=== PATIENT | male | born 1955 | race Caucasian/White ===

== ENCOUNTER → 2019-04-24 | Outpatient (CLI) | payer SELFPAY ==
[2019-04-24 09:52] LABS: CARBON DIOXIDE 27 MMOL/L (21-32); CHLORIDE 99 MMOL/L (98-107); POTASSIUM 4.5 MMOL/L (3.6-5.0); SODIUM 137 MMOL/L (135-145)
[2019-04-24 09:53] LABS: ALANINE AMINOTRANSFERASE 26 U/L (0-55); ALBUMIN 4.7 GM/DL (3.2-4.5); ALKALINE PHOSPHATASE 61 U/L (40-136); BILIRUBIN,TOTAL 1.6 MG/DL (0.1-1.0); BUN/CREATININE RATIO 14; CALCIUM 9.4 MG/DL (8.5-10.1); CREATININE SERUM 1.33 MG/DL (0.60-1.30); GFR ESTIMATED 54; GLUCOSE 101 MG/DL (70-105); TOTAL PROTEIN 7.5 GM/DL (6.4-8.2)
== END ==
LOC: LAB FS 08:53
PROVIDERS: ATTEND Family Medicine
DX: I10 Essential (primary) hypertension (principal)
CPT/HCPCS: 36415; 80053

== ENCOUNTER → 2019-04-24 | Outpatient (CLI) | payer SELFPAY ==
[~2019-04-24] MED LIST: CATHETER FLUSH 10 ML SYR IV PRN; HOLD METFORMIN - RECEIVED CONTRAST 20 ML VIAL IV SCH; IOHEXOL 350 MG/ML 100 ML (OMNIPAQUE 350) VIAL IV ONE; NS 100 ML (IVPB) BAG IV ONE
--- NOTE | 2019-04-24 11:41 | Diagnostic Imaging Report ---
PROCEDURE: CT abdomen and pelvis with contrast. TECHNIQUE: Multiple contiguous axial images were obtained through the abdomen and pelvis after administration of intravenous contrast. Auto Exposure Controls were utilized during the CT exam to meet ALARA standards for radiation dose reduction. INDICATION: Lower abdominal pain. COMPARISON: No prior studies are available for comparison. FINDINGS: The lung bases are clear. No discrete liver mass is identified. There are multiple stones within the gallbladder. No biliary ductal dilatation is seen. The pancreas and spleen are unremarkable. No adrenal mass is detected. Kidneys are unremarkable apart from a simple appearing cyst in the upper pole of the right kidney measuring 19 mm. There is no hydronephrosis. The aorta is non-aneurysmal. No central, retroperitoneal or mesenteric lymphadenopathy is detected. The small and large bowel loops are normal caliber. No obstruction is detected. There is diverticulosis of the sigmoid colon but no evidence of acute diverticulitis. The appendix appears unremarkable. No free fluid or loculated fluid collection is identified. The unopacified urinary bladder is unremarkable. Prostate is unremarkable. No definite pelvic lymphadenopathy is seen. IMPRESSION: 1. Cholelithiasis. 2. Uncomplicated diverticulosis. 3. No acute abnormality is identified. Dictated by: Dictated on workstation # [id number]
== END ==
LOC: RAD FS 08:47
PROVIDERS: ATTEND Family Medicine
DX: K57.30 Diverticulosis of large intestine without perforation or abscess without bleeding (principal); K80.20 Calculus of gallbladder without cholecystitis without obstruction; I10 Essential (primary) hypertension
CPT/HCPCS: 74177

== ENCOUNTER 2019-07-16 08:36 | Emergency (ER) | payer SELFPAY ==
[~2019-07-16] VITALS: Ht 172.7 cm; Wt 72.7 kg
[2019-07-16] MEDS ORDERED: ONDANSETRON 4 MG/2 ML (SDV) Z0FRAN IVP ONE (09:00)
[2019-07-16] MEDS ORDERED: KETOROLAC 30 MG/ML VIAL IVP ONE (09:00)
[2019-07-16] MEDS ORDERED: NS IV 1000 ML 1,000 ML IV SCH ×2 (09:00→09:45)
--- NOTE | 2019-07-16 09:05 | ED Abdominal Pain ---
General Chief Complaint: Abdominal/GI Problems Stated Complaint: LWR BACK PAIN History of Present Illness Date Seen by Provider: Jul 16, 2019 Time Seen by Provider: 08:40 Initial Comments Patient is here with left flank pain left lower quadrant pain really started on Saturday has not had a bowel movement in several days but also noting quite a bit of colicky pain that extends down down to the suprapubic region. No history of this happening before he was seen in the doctor's office that of a prostate infection and placed on a twice a day antibiotic, unsure what it is but has not helped at all also has a history of hypertension and isn't on lisinopril for that. No previous history of stones Timing/Duration: 5-6 Days Severity/Quality: Moderate, Cramping, Sharp Location: LLQ, Flank, Suprapubic Radiation: No Radiation Activities at Onset: None Modifying Factors: Improves With Eating, Improves With Movement Associated Symptoms: No Chest Pain; Diaphoresis; No Headache, No Weakness Allergies and Home Medications Allergies Coded Allergies: No Known Drug Allergies (Unverified , 04/24/19) Patient Home Medication List Home Medication List Reviewed: Yes Review of Systems Review of Systems Constitutional: No chills, No fever, No malaise, No weakness EENTM: No Blurred Vision, No Double Vision, No Ear Pain, No Throat Pain Respiratory: Denies Cough, Denies Shortness of Air Cardiovascular: Denies Chest Pain, Denies Palpitations Gastrointestinal: Abdominal Pain, Constipated, Nausea; Denies Vomiting Genitourinary: Denies Frequency, Denies Flank Pain, Denies Incontinence, Denies Pain Musculoskeletal: back pain; No joint swelling, No muscle pain Skin: No change in color, No lesions Psychiatric/Neurological: Denies Headache, Denies Numbness, Denies Paresthesia Past Gycqluy-Fugmuf-Qsplle Hx Past Med/Social Hx: Reviewed Nursing Past Med/Soc Hx Patient Social History Recent Foreign Travel: No Physical Exam Vital Signs Vital Signs - First Documented 07/16/19 08:59 Temp 36.0 Pulse 99 Resp 20 B/P (MAP) 122/67 (85) Pulse Ox 98 O2 Delivery Room Air Capillary Refill : Height/Weight/BMI Height: '" Weight: lbs. oz. kg; BMI Method: General Appearance: WD/WN, moderate distress HEENT: PERRL/EOMI, TMs normal, pharynx normal Neck: full range of motion, normal inspection Respiratory: normal breath sounds, no respiratory distress Cardiovascular: regular rate, rhythm, no murmur Gastrointestinal: normal bowel sounds; No guarding, No rebound; tenderness Extremities: normal range of motion, normal inspection Back: CVA tenderness (L) Neurologic/Psychiatric: alert, oriented x 3 Skin: normal color, warm/dry Progress/Results/Core Measures Results/Orders Lab Results Laboratory Tests Test 07/16/19 08:50 07/16/19 10:04 Range/Units White Blood Count 19.2 H 4.3-11.0 10^3/uL Red Blood Count 5.99 H 4.35-5.85 10^6/uL Hemoglobin 18.0 H 13.3-17.7 G/DL Hematocrit 53 40-54 % Mean Corpuscular Volume 89 80-99 FL Mean Corpuscular Hemoglobin 30 25-34 PG Mean Corpuscular Hemoglobin Concent 34 32-36 G/DL Red Cell Distribution Width 12.6 10.0-14.5 % Platelet Count 291 130-400 10^3/uL Mean Platelet Volume 9.2 7.4-10.4 FL Neutrophils (%) (Auto) 68 42-75 % Lymphocytes (%) (Auto) 20 12-44 % Monocytes (%) (Auto) 10 0-12 % Eosinophils (%) (Auto) 1 0-10 % Basophils (%) (Auto) 1 0-10 % Neutrophils # (Auto) 13.1 H 1.8-7.8 X 10^3 Lymphocytes # (Auto) 3.9 1.0-4.0 X 10^3 Monocytes # (Auto) 1.9 H 0.0-1.0 X 10^3 Eosinophils # (Auto) 0.1 0.0-0.3 10^3/uL Basophils # (Auto) 0.1 0.0-0.1 10^3/uL Neutrophils % (Manual) 72 % Lymphocytes % (Manual) 23 % Monocytes % (Manual) 3 % Eosinophils % (Manual) 1 % Basophils % (Manual) 0 % Band Neutrophils 1 % Sodium Level 131 L 135-145 MMOL/L Potassium Level 4.1 3.6-5.0 MMOL/L Chloride Level 92 L 98-107 MMOL/L Carbon Dioxide Level 24 21-32 MMOL/L Anion Gap 15 H 5-14 MMOL/L Blood Urea Nitrogen 15 7-18 MG/DL Creatinine 1.65 H 0.60-1.30 MG/DL Estimat Glomerular Filtration Rate 42 BUN/Creatinine Ratio 9 Glucose Level 118 H 70-105 MG/DL Calcium Level 9.7 8.5-10.1 MG/DL Corrected Calcium 9.3 8.5-10.1 MG/DL Total Bilirubin 1.7 H 0.1-1.0 MG/DL Aspartate Amino Transf (AST/SGOT) 22 5-34 U/L Alanine Aminotransferase (ALT/SGPT) 20 0-55 U/L Alkaline Phosphatase 62 40-136 U/L Total Protein 7.9 6.4-8.2 GM/DL Albumin 4.5 3.2-4.5 GM/DL Lipase 75 8-78 U/L Urine Color YELLOW Urine Clarity CLEAR Urine pH 7.0 5-9 Urine Specific Fiatt 1.020 1.016-1.022 Urine Protein NEGATIVE NEGATIVE Urine Glucose (UA) NEGATIVE NEGATIVE Urine Ketones TRACE H NEGATIVE Urine Nitrite NEGATIVE NEGATIVE Urine Bilirubin 1+ H NEGATIVE Urine Urobilinogen 1.0 < = 1.0 MG/DL Urine Leukocyte Esterase NEGATIVE NEGATIVE Urine RBC (Auto) TRACE H NEGATIVE Urine RBC RARE /HPF Urine WBC 0-2 /HPF Urine Squamous Epithelial Cells NONE /HPF Urine Crystals NONE /LPF Urine Bacteria FEW H /HPF Urine Casts NONE /LPF Urine Mucus SMALL H /LPF Urine Culture Indicated NO My Orders Orders - ALEXA JIMENEZ JR, MD Cbc And Manual Diff (07/16/19 08:51) Comprehensive Metabolic Panel (07/16/19 08:51) Ua Culture If Indicated (07/16/19 08:51) Lipase (07/16/19 08:51) Ns Iv 1000 Ml (Sodium Chloride 0.9%) (07/16/19 09:00) Ondansetron Injection (Zofran Injectio (07/16/19 09:00) Ketorolac Injection (Toradol Injection) (07/16/19 09:00) Ct Abdomen/Pelvis Wo (07/16/19 08:51) Ns Iv 1000 Ml (Sodium Chloride 0.9%) (07/16/19 09:45) Medications Given in ED Current Medications Medications Dose Ordered Sig/Ciro Route Start Time Stop Time Status Last Admin Dose Admin Ketorolac Tromethamine 30 mg ONCE ONCE IVP 07/16/19 09:00 07/16/19 09:01 DC 07/16/19 09:01 30 MG Ondansetron HCl 4 mg ONCE ONCE IVP 07/16/19 09:00 07/16/19 09:01 DC 07/16/19 09:01 4 MG Vital Signs/I&O 07/16/19 08:59 Temp 36.0 Pulse 99 Resp 20 B/P (MAP) 122/67 (85) Pulse Ox 98 O2 Delivery Room Air Progress Progress Note : Time: 10:45 Progress Note Patient's still a little residual pain left flank left posterior back left suprapubic area markedly improved CAT scan didn't show any evidence of stones did show gallstones and diverticulosis but no diverticulitis urine did show some blood he did have a 19,000 white count at this time of switch him over to Cipro will continue push fluids is this his prostate as was originally suspected orifices of kidney stone the past. Will follow with his primary care doctor's the week Departure Impression Primary Impression: Abdominal pain Qualified Codes: R10.32 - Left lower quadrant pain Disposition: 01 HOME, SELF-CARE Condition: Stable Departure-Patient Inst. Referrals: SELFMARY KAY MD (PCP/Family) Primary Care Physician Patient Instructions: Acute Abdomen (Belly Pain), Adult (DC), Renal Colic (DC) Scripts Ciprofloxacin HCl (Ciprofloxacin HCl) 500 Mg Tablet 500 MG PO BID for 10 Days, #20 TAB Prov: ALEXA JIMENEZ JR, MD 07/16/19 ALEXA JIMENEZ JR, MD Jul 16, 2019 09:05
[2019-07-16 09:06] LABS: HEMATOCRIT 53 % (40-54); MEAN CORPUSCULAR HEMOGLOBIN 30 PG (25-34); MEAN CORPUSCULAR HGB CONC 34 G/DL (32-36); MEAN CORPUSCULAR VOLUME 89 FL (80-99); MEAN PLATELET VOLUME 9.2 FL (7.4-10.4); PLATELET COUNT 291 10^3/uL (130-400); RED CELL DISTRIBUTION WIDTH 12.6 % (10.0-14.5); WHITE BLOOD COUNT 19.2 10^3/uL (4.3-11.0)
[2019-07-16 09:07] LABS: BASOPHILS # (AUTO) 0.1 10^3/uL (0.0-0.1); BASOPHILS % (AUTO) 1 % (0-10); EOSINOPHILS # (AUTO) 0.1 10^3/uL (0.0-0.3); EOSINOPHILS % (AUTO) 1 % (0-10); LYMPHOCYTES # (AUTO) 3.9 X 10^3 (1.0-4.0); LYMPHOCYTES % (AUTO) 20 % (12-44); MONOCYTES # (AUTO) 1.9 X 10^3 (0.0-1.0); MONOCYTES % (AUTO) 10 % (0-12); NEUTROPHILS # (AUTO) 13.1 X 10^3 (1.8-7.8); NEUTROPHILS % (AUTO) 68 % (42-75)
[2019-07-16 09:32] LABS: BAND NEUTROPHILS 1 %; BASOPHILS % (MANUAL) 0 %; EOSINOPHILS % (MANUAL) 1 %; LYMPHOCYTES % (MANUAL) 23 %; MONOCYTES % (MANUAL) 3 %; NEUTROPHILS % (MANUAL) 72 %
[2019-07-16 09:34] LABS: ALBUMIN 4.5 GM/DL (3.2-4.5); BILIRUBIN,TOTAL 1.7 MG/DL (0.1-1.0); CALCIUM 9.7 MG/DL (8.5-10.1); CREATININE SERUM 1.65 MG/DL (0.60-1.30); POTASSIUM 4.1 MMOL/L (3.6-5.0); TOTAL PROTEIN 7.9 GM/DL (6.4-8.2)
--- NOTE | 2019-07-16 09:46 | Diagnostic Imaging Report ---
PROCEDURE: CT abdomen and pelvis without contrast. TECHNIQUE: Multiple contiguous axial images were obtained through the abdomen and pelvis without the use of intravenous contrast. Auto Exposure Controls were utilized during the CT exam to meet ALARA standards for radiation dose reduction. All CT scans use one or more of the following dose optimizing techniques: automated exposure control, MA and/or KvP adjustment based on patient size and exam type or iterative reconstruction. INDICATION: Left lower flank pain and lower abdominal and pelvic pain. COMPARISON: Correlation is made with prior CT from 04/24/2019. FINDINGS: Linear atelectasis or scarring in both bases is noted. The liver remains unremarkable. Multiple stones within the gallbladder are again noted. There is no biliary ductal dilatation. The pancreas and spleen are unremarkable. No adrenal mass is seen. Kidneys are without calculi. No definite hydronephrosis is identified. No ureteral or bladder calculi are detected. Aorta is calcified but nonaneurysmal. Bowel loops remain normal caliber. There is diverticulosis involving the descending and sigmoid colon. No definite evidence of acute diverticulitis is identified. Prostate is mildly enlarged. There is no free fluid or fluid collection identified. Bony structures are nonacute. IMPRESSION: 1. Bibasilar subsegmental atelectasis. 2. Cholelithiasis. 3. No urinary tract calculi or obstruction is detected. 4. Uncomplicated diverticulosis. 5. Mild prostatomegaly. Dictated by: Dictated on workstation # [id number]
[2019-07-16 10:35] LABS: BILIRUBIN,URINE 1+ (NEGATIVE); CLARITY,URINE CLEAR; COLOR,URINE YELLOW; GLUCOSE, URINE (UA) NEGATIVE (NEGATIVE); KETONES,URINE TRACE (NEGATIVE); NITRITE,URINE NEGATIVE (NEGATIVE); PROTEIN,URINE NEGATIVE (NEGATIVE)
[2019-07-16 10:36] LABS: BACTERIA,URINE FEW /HPF; LEUKOCYTE ESTERASE ,URINE NEGATIVE (NEGATIVE); RBC,URINE RARE /HPF; WBC,URINE 0-2 /HPF
[2019-07-16] MEDS ORDERED: CIPR500T4 PO (10:49)
[2019-07-16 11:14] VITALS: BP 142/77
== END 2019-07-16 11:14 | disposition home or self-care (01) ==
LOC: EDUNIT# 08:36 → ER FS 08:37
DX: R10.32 Left lower quadrant pain (principal); I10 Essential (primary) hypertension
CPT/HCPCS: 36415; 74176; 80053; 81000; 83690; 85007; 85027; 96374; 96375

== ENCOUNTER → 2020-06-13 | Outpatient (CLI) | payer OTHER ==
[~2020-06-13] MED LIST changes: -CATHETER FLUSH 10 ML SYR IV PRN; +CIPR500T4 PO; -HOLD METFORMIN - RECEIVED CONTRAST 20 ML VIAL IV SCH; -IOHEXOL 350 MG/ML 100 ML (OMNIPAQUE 350) VIAL IV ONE; -NS 100 ML (IVPB) BAG IV ONE
--- NOTE | 2020-06-13 13:58 | Diagnostic Imaging Report ---
EXAMINATION: Right shoulder at 01:14 p.m. INDICATION: Shoulder pain. Three views were obtained. COMPARISON: There are no prior studies available for comparison. FINDINGS: There is no fracture, dislocation or acute bony abnormality evident. 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 The soft tissues are unremarkable. IMPRESSION: 1. There is no evidence for an acute bony abnormality. 2. If there is clinical concern regarding an injury to the rotator cuff or labrum, then MRI would be recommended for further evaluation. Dictated by: Dictated on workstation # [id number]
== END ==
LOC: RAD FS 13:09
PROVIDERS: ATTEND Nurse Practitioner
DX: M25.511 Pain in right shoulder (principal)
CPT/HCPCS: 73030

== ENCOUNTER → 2021-09-26 | Outpatient (CLI) | payer SELFPAY ==
[~2021-09-26] MED LIST changes: -CIPR500T4 PO; +CIPR500T5 PO
--- NOTE | 2021-09-26 11:15 | Diagnostic Imaging Report ---
INDICATION: Hyperlipidemia. TECHNIQUE: The CT cardiac calcium scoring study was performed with no IV contrast and images of the heart. Calcium scoring was then calculated. Dose reduction protocol was used. FINDINGS: Raw data images demonstrate no mediastinal or hilar adenopathy. The visualized portions of the lung rea show a small incidental pleural-based nodule in the left lower lobe adjacent to the fissure measuring about 6 mm. The entirety of the lung rae is not imaged. CT coronary calcium study demonstrates small areas of calcification in the left main coronary artery and LAD with a total score of 31.8 seen, compatible with overall mild plaque burden. No significant calcifications are visualized in the circumflex coronary artery or right coronary artery. IMPRESSION: Small areas of calcification in the left main coronary artery and LAD with a coronary calcium score of 31.8, compatible with a mild overall plaque burden. Incidental note is made of a 6 mm nodular density in the left lower lobe adjacent to the fissure. Consider followup with full chest CT. Dictated by: Dictated on workstation # [id number]
== END ==
LOC: RAD FS 10:35
PROVIDERS: ATTEND Family Medicine
DX: I25.10 Atherosclerotic heart disease of native coronary artery without angina pectoris (principal); E78.5 Hyperlipidemia, unspecified; R91.8 Other nonspecific abnormal finding of lung field
CPT/HCPCS: 75571

== ENCOUNTER 2021-11-14 09:34 | Emergency (ER) | payer MEDICARE, OTHER ==
[~2021-11-14] VITALS: Ht 172 cm; Wt 71.6 kg
[2021-11-14 10:10] LABS: BILIRUBIN,URINE NEGATIVE (NEGATIVE); CLARITY,URINE CLEAR; COLOR,URINE YELLOW; GLUCOSE, URINE (UA) NEGATIVE (NEGATIVE); KETONES,URINE NEGATIVE (NEGATIVE); LEUKOCYTE ESTERASE ,URINE NEGATIVE (NEGATIVE); NITRITE,URINE NEGATIVE (NEGATIVE); PROTEIN,URINE NEGATIVE (NEGATIVE)
[2021-11-14 10:29] LABS: BASOPHILS % (AUTO) 0 % (0-10); EOSINOPHILS # (AUTO) 0.1 10^3/uL (0.0-0.3); EOSINOPHILS % (AUTO) 1 % (0-10); HEMATOCRIT 48 % (40-54); HEMOGLOBIN 16.8 g/dL (13.3-17.7); LYMPHOCYTES # (AUTO) 2.5 10^3/uL (1.0-4.0); LYMPHOCYTES % (AUTO) 24 % (12-44); MEAN CORPUSCULAR HEMOGLOBIN 31 pg (25-34); MEAN CORPUSCULAR HGB CONC 35 g/dL (32-36); MEAN CORPUSCULAR VOLUME 88 fL (80-99); MONOCYTES # (AUTO) 1.1 10^3/uL (0.0-1.0); MONOCYTES % (AUTO) 11 % (0-12); NEUTROPHILS # (AUTO) 6.5 10^3/uL (1.8-7.8); NEUTROPHILS % (AUTO) 63 % (42-75); PLATELET COUNT 251 10^3/uL (130-400); WHITE BLOOD COUNT 10.3 10^3/uL (4.3-11.0)
[2021-11-14 10:32] LABS: BACTERIA,URINE NEGATIVE /HPF; WBC,URINE RARE /HPF
[2021-11-14 10:39] LABS: INR 0.9 (0.8-1.4); PROTHROMBIN TIME PATIENT 12.4 SEC (12.2-14.7)
--- NOTE | 2021-11-14 10:49 | ED General ---
General Chief Complaint: Abdominal/GI Problems Stated Complaint: BLOODY STOOL Nursing Triage Note: Patient has presented to ER with cc of bright blood in the stool this morning after having a bowel movment. He reports that he had bright red blood on the tissure yesterday and today when he had a bowel movment he had bright red blood in the stool. Source of Information: Patient, Old Records History of Present Illness Date Seen by Provider: November 14, 2021 Time Seen by Provider: 10:39 Initial Comments 65-year-old male presenting with complaints of bright red blood when he wiped after having a bowel movement yesterday. Today he had bright red blood in the stool after having a bowel movement. He was not having increased abdominal pain. He denies having nausea or vomiting. He has had some increased GERD symptoms. He denies fever, chills, dysuria, abdominal trauma, blood in urine. He had a recent colonoscopy that had a few small polyps and diverticulosis but did not show anything severe. He is not following a strict diverticulosis diet any longer. He did have a harder stool and was having to strain to go to the bathroom as well as having lifted some heavy objects for work. Timing/Duration: 1-2 Days Severity: Moderate Modifying Factors: worse with Other (bowel movement makes his symptoms worse) Associated Systoms: No Chest Pain, No Cough, No Diaphoresis, No Fever/Chills, No Headaches, No Loss of Appetite, No Malaise, No Nausea/Vomiting, No Rash, No Seizure, No Shortness of Air, No Syncope, No Weakness Allergies and Home Medications Allergies Coded Allergies: No Known Drug Allergies (Unverified , 04/24/19) Patient Home Medication List Home Medication List Reviewed: Yes Ciprofloxacin HCl (Ciprofloxacin HCl) 500 Mg Tablet, 500 MG PO BID Prescribed by: ALEXA JIMENEZ on 07/16/19 1049 Review of Systems Review of Systems Constitutional: No chills, No dizziness, No fever EENTM: no symptoms reported Respiratory: no symptoms reported Cardiovascular: no symptoms reported Gastrointestinal: see HPI Genitourinary: no symptoms reported Musculoskeletal: no symptoms reported Skin: no symptoms reported Psychiatric/Neurological: No Symptoms Reported Hematologic/Lymphatic: Denies Blood Clots, Denies Easy Bleeding, Denies Easy Bruising Past Zycqzyz-Pcyfpw-Nkonph Hx Patient Social History Tobacco Use?: No Use of E-Cig and/or Vaping dev: No Substance use?: No Alcohol Use?: No Seasonal Allergies Seasonal Allergies: No Past Medical History Surgery/Hospitalization HX: Diverticulosis, hypertension Surgeries: Yes Orthopedic Respiratory: No Cardiac: Yes Hypertension Neurological: No Genitourinary: No Gastrointestinal: No Musculoskeletal: No Endocrine: No HEENT: No Cancer: No Psychosocial: No Integumentary: No Blood Disorders: No Physical Exam Vital Signs Vital Signs - First Documented 11/14/21 10:13 Temp 36.8 Pulse 65 Resp 14 B/P (MAP) 146/88 (107) Pulse Ox 98 O2 Delivery Room Air Capillary Refill : Height, Weight, BMI Height: '" Weight: lbs. oz. kg; 24.00 BMI Method: General Appearance: No Apparent Distress, WD/WN HEENT: PERRL/EOMI, Normal ENT Inspection, Pharynx Normal Neck: Full Range of Motion, Normal Inspection, Non Tender, Supple Respiratory: Chest Non Tender, Lungs Clear, Normal Breath Sounds, No Accessory Muscle Use, No Respiratory Distress Cardiovascular: Regular Rate, Rhythm, Normal Peripheral Pulses Gastrointestinal: Normal Bowel Sounds, No Pulsatile Mass, Soft; No Distended, No Guarding, No Rebound; Tenderness (Mild tenderness in the epigastric area and left flank. 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 Skin: Normal Color, Warm/Dry Progress/Results/Core Measures Suspected Sepsis SIRS Temperature: Pulse: 65 Respiratory Rate: 14 Laboratory Tests 11/14/21 10:20: White Blood Count 10.3 Blood Pressure 146 /88 Mean: 107 Laboratory Tests 11/14/21 10:20: Creatinine 1.09, INR Comment 0.9, Platelet Count 251, Total Bilirubin 1.6H Results/Orders Lab Results Laboratory Tests Test 11/14/21 10:00 11/14/21 10:20 Range/Units Urine Color YELLOW Urine Clarity CLEAR Urine pH 6.0 5-9 Urine Specific Winfred <=1.005 1.016-1.022 Urine Protein NEGATIVE NEGATIVE Urine Glucose (UA) NEGATIVE NEGATIVE Urine Ketones NEGATIVE NEGATIVE Urine Nitrite NEGATIVE NEGATIVE Urine Bilirubin NEGATIVE NEGATIVE Urine Urobilinogen 0.2 < = 1.0 MG/DL Urine Leukocyte Esterase NEGATIVE NEGATIVE Urine RBC (Auto) NEGATIVE NEGATIVE Urine RBC NONE /HPF Urine WBC RARE /HPF Urine Squamous Epithelial Cells NONE /HPF Urine Crystals NONE /LPF Urine Bacteria NEGATIVE /HPF Urine Casts NONE /LPF Urine Mucus NEGATIVE /LPF Urine Culture Indicated NO White Blood Count 10.3 4.3-11.0 10^3/uL Red Blood Count 5.44 4.30-5.52 10^6/uL Hemoglobin 16.8 13.3-17.7 g/dL Hematocrit 48 40-54 % Mean Corpuscular Volume 88 80-99 fL Mean Corpuscular Hemoglobin 31 25-34 pg Mean Corpuscular Hemoglobin Concent 35 32-36 g/dL Red Cell Distribution Width 13.0 10.0-14.5 % Platelet Count 251 130-400 10^3/uL Mean Platelet Volume 9.0 9.0-12.2 fL Immature Granulocyte % (Auto) 0 % Neutrophils (%) (Auto) 63 42-75 % Lymphocytes (%) (Auto) 24 12-44 % Monocytes (%) (Auto) 11 0-12 % Eosinophils (%) (Auto) 1 0-10 % Basophils (%) (Auto) 0 0-10 % Neutrophils # (Auto) 6.5 1.8-7.8 10^3/uL Lymphocytes # (Auto) 2.5 1.0-4.0 10^3/uL Monocytes # (Auto) 1.1 H 0.0-1.0 10^3/uL Eosinophils # (Auto) 0.1 0.0-0.3 10^3/uL Basophils # (Auto) 0.0 0.0-0.1 10^3/uL Immature Granulocyte # (Auto) 0.0 0.0-0.1 10^3/uL Prothrombin Time 12.4 12.2-14.7 SEC INR Comment 0.9 0.8-1.4 Activated Partial Thromboplast Time 29 24-35 SEC Sodium Level 137 135-145 MMOL/L Potassium Level 4.6 3.6-5.0 MMOL/L Chloride Level 101 98-107 MMOL/L Carbon Dioxide Level 25 21-32 MMOL/L Anion Gap 11 5-14 MMOL/L Blood Urea Nitrogen 15 7-18 MG/DL Creatinine 1.09 0.60-1.30 MG/DL Estimat Glomerular Filtration Rate 75 BUN/Creatinine Ratio 14 Glucose Level 94 70-105 MG/DL Calcium Level 9.5 8.5-10.1 MG/DL Corrected Calcium 8.5-10.1 MG/DL Total Bilirubin 1.6 H 0.1-1.0 MG/DL Aspartate Amino Transf (AST/SGOT) 24 5-34 U/L Alanine Aminotransferase (ALT/SGPT) 16 0-55 U/L Alkaline Phosphatase 60 40-136 U/L Total Protein 7.4 6.4-8.2 GM/DL Albumin 4.6 H 3.2-4.5 GM/DL Lipase 38 8-78 U/L My Orders Orders - SARANYA OLIVO MD Comprehensive Metabolic Panel (11/14/21 10:05) Lipase (11/14/21 10:05) Ua Culture If Indicated (11/14/21 10:05) Ed Iv/Invasive Line Start (11/14/21 10:05) Cbc With Automated Diff (11/14/21 10:05) Protime With Inr (11/14/21 10:05) Partial Thromboplastin Time (11/14/21 10:05) Fecal Occult Bedside (11/14/21 11:25) Vital Signs/I&O 11/14/21 11/14/21 10:13 11:45 Temp 36.8 36.8 Pulse 65 65 Resp 14 14 B/P (MAP) 146/88 (107) 146/88 Pulse Ox 98 98 O2 Delivery Room Air Room Air Capillary Refill : Blood Pressure Mean: 107 Progress Note #1: Progress Note Obtain basic labs and electrolytes. Order Hemoccult to check for blood in his stool. Progress Note #2: Progress Note Labs are stable without elevation of the white blood cell count or hemoglobin. He does not show signs of anemia. His urinalysis was clear and well-hydrated. He had no signs of UTI. His chemistry panel was stable without acute significant abnormality other than mild elevation of his total bilirubin to 1.6. The bedside Hemoccult test was positive. However his stool was normal in color and there was no obvious gross blood present. He did have some small external hemorrhoids on physical exam. Counseled patient that a CT could be performed to evaluate for possible diverticulitis or colon infection causing his blood in the stool. Patient felt that she wanted to wait and see if things resolved on their own. Advised that I could give him a short course of antibiotics to treat for possible diverticulitis but patient again wanted to wait and hold off on that. Counseled on [id number] symptomatic treatment of hemorrhoids and given a handout about diverticulosis and some high-fiber diet changes. Encouraged to use MiraLAX until he has soft regular stools and then change from daily use to 2-3 times a week. Return if having worsening problems otherwise follow-up through the clinic for continued concerns Departure Impression Primary Impression: Hemorrhoids Qualified Codes: K64.9 - Unspecified hemorrhoids Additional Impressions: Bright red blood per rectum Left sided abdominal pain Diverticulosis Disposition: HOME, SELF-CARE Condition: Stable Departure-Patient Inst. Decision time for Depature: 11:27 Referrals: SELF,MARY KAY AZUL (PCP) Primary Care Physician Patient Instructions: Bloody Stools, Adult ED, Diverticulosis (DC), Flank Pain ED, Hemorrhoids ED, High Fiber Diet Add. Discharge Instructions: Stay well-hydrated and drink plenty of fluids. Follow a high-fiber diet and diverticulosis diet Increase the fiber in your diet and try to keep your stools soft and regular. Consider taking MiraLAX daily to keep your stools soft and regular and then you can decrease to 2-3 times a week as needed. Try using lqyr-eqy-slepzej medications such as Preparation H or Tucks medicated pads to help with bleeding and irritation from hemorrhoids at the anal opening. Limit your straining and lifting as this will cause more bleeding from the hemorrhoids. If you develop fever over 101 Fahrenheit, increased abdominal pain, dark tarry stool or maroon-colored stools return or seek medical care for further evaluation as you may need IV antibiotics or treatment for diverticulitis. All discharge instructions reviewed with patient and/or family. Voiced understanding. SARANYA OLIVO MD November 14, 2021 10:49
[2021-11-14 10:56] LABS: ALANINE AMINOTRANSFERASE 16 U/L (0-55); ALBUMIN 4.6 GM/DL (3.2-4.5); ALKALINE PHOSPHATASE 60 U/L (40-136); BILIRUBIN,TOTAL 1.6 MG/DL (0.1-1.0); BUN/CREATININE RATIO 14; CALCIUM 9.5 MG/DL (8.5-10.1); CARBON DIOXIDE 25 MMOL/L (21-32); CHLORIDE 101 MMOL/L (98-107); CREATININE SERUM 1.09 MG/DL (0.60-1.30); GFR ESTIMATED 75; GLUCOSE 94 MG/DL (70-105); POTASSIUM 4.6 MMOL/L (3.6-5.0); SODIUM 137 MMOL/L (135-145); TOTAL PROTEIN 7.4 GM/DL (6.4-8.2)
[2021-11-14 10:57] LABS: LIPASE 38 U/L (8-78)
[2021-11-14 11:45] VITALS: BP 146/88
== END 2021-11-14 11:46 | disposition home or self-care (01) ==
LOC: EDUNIT# 09:34 → ER FS 09:35
DX: K64.4 Residual hemorrhoidal skin tags (principal); K57.91 Diverticulosis of intestine, part unspecified, without perforation or abscess with bleeding; D72.829 Elevated white blood cell count, unspecified
CPT/HCPCS: 36415; 80053; 81000; 82274; 83690; 85025; 85610; 85730

== ENCOUNTER 2022-09-09 23:02 | Emergency (ER) | payer MEDICARE, OTHER ==
[~2022-09-09] VITALS: Ht 172.7 cm; Wt 71.0 kg
[2022-09-09] MEDS ORDERED: cefTRIAXone 1 GM PRE-MIX 50 ML IV ONE (23:15)
[2022-09-09] MEDS ORDERED: HYDROcodone/APAP 5 MG/325 MG (LORTAB) TAB PO ONE (23:15)
[2022-09-09] MEDS ORDERED: NS IV 1000 ML 1,000 ML IV STA (23:15)
--- NOTE | 2022-09-09 23:22 | ED Cough/URI ---
General Stated Complaint: TROUBLE BREATHING Source: patient Exam Limitations: no limitations History of Present Illness Date Seen by Provider: Sep 09, 2022 Time Seen by Provider: 23:05 Initial Comments 66-year-old male with past medical history of hypertension coming in due to cough and shortness of breath. He has had this cough, congestion, and fever for about a week now. Went to the urgent care 2 days ago and was diagnosed with an upper respiratory infection. Was sent home with Tessalon Perles, azithromycin, and Augmentin. He states he is not feeling better. He felt like he had a fever earlier subjectively. Had Tylenol last more than 6 hours ago. Denies any vomiting, does have a little bit of diarrhea, no chest pain, abdominal pain, or any other concerns. Denies any heart disease, lung disease, does not smoke, no prior history of DVT or PE, no lower extremity swelling or pain, no recent surgery, no hemoptysis Allergies and Home Medications Allergies Coded Allergies: No Known Drug Allergies (Unverified , 04/24/19) Patient Home Medication List Home Medication List Reviewed: Yes Ciprofloxacin HCl (Ciprofloxacin HCl) 500 Mg Tablet, 500 MG PO BID Prescribed by: ALEXA JIMENEZ on 07/16/19 1049 Review of Systems Review of Systems Constitutional: fever EENTM: nose congestion Respiratory: cough Cardiovascular: No chest pain Gastrointestinal: No abdominal pain Genitourinary: no symptoms reported Musculoskeletal: no symptoms reported Skin: no symptoms reported Psychiatric/Neurological: No Symptoms Reported Hematologic/Lymphatic: No Symptoms Reported Immunological/Allergic: no symptoms reported All Other Systems Reviewed Negative Unless Noted: Yes Past Xggsybi-Gmyang-Xappqu Hx Patient Social History Tobacco Use?: No Seasonal Allergies Seasonal Allergies: No Past Medical History Surgery/Hospitalization HX: Diverticulosis, hypertension Surgeries: Yes Orthopedic Respiratory: No Cardiac: Yes Hypertension Neurological: No Genitourinary: No Gastrointestinal: No Musculoskeletal: No Endocrine: No HEENT: No Cancer: No Psychosocial: No Integumentary: No Blood Disorders: No Physical Exam Vital Signs - First Documented 09/09/22 23:08 Temp 37.0 Pulse 116 Resp 18 B/P (MAP) 186/97 (126) Pulse Ox 94 O2 Delivery Room Air Capillary Refill : Height: '" Weight: lbs. oz. kg; 24.00 BMI Method: General Appearance: WD/WN, other (Actively coughing) Eyes: Bilateral Eye Normal Inspection HEENT: PERRL/EOMI, normal ENT inspection, pharynx normal Neck: non-tender, full range of motion, supple, normal inspection Respiratory: chest non-tender, no respiratory distress, no accessory muscle use, rhonchi (Faint on the left lower) Cardiovascular: regular rate, rhythm, no edema, no murmur Gastrointestinal: normal bowel sounds, non tender, soft; No distended, No guarding Extremities: normal range of motion, non-tender, normal inspection, no pedal ed tylor, no calf tenderness, normal capillary refill Neurologic/Psychiatric: no motor/sensory deficits, alert, normal mood/affect Skin: normal color, warm/dry Lymphatic: no adenopathy Progress/Results/Core Measures Suspected Sepsis SIRS Temperature: Pulse: Respiratory Rate: Laboratory Tests 09/09/22 23:16: White Blood Count 18.2H Blood Pressure / Mean: Laboratory Tests 09/09/22 23:16: Creatinine 1.18, Platelet Count 213, Total Bilirubin 1.4H Results/Orders Lab Results Laboratory Tests Test 09/09/22 23:16 Range/Units White Blood Count 18.2 H 4.3-11.0 10^3/uL Red Blood Count 5.61 H 4.30-5.52 10^6/uL Hemoglobin 17.2 13.3-17.7 g/dL Hematocrit 50 40-54 % Mean Corpuscular Volume 88 80-99 fL Mean Corpuscular Hemoglobin 31 25-34 pg Mean Corpuscular Hemoglobin Concent 35 32-36 g/dL Red Cell Distribution Width 13.0 10.0-14.5 % Platelet Count 213 130-400 10^3/uL Mean Platelet Volume 9.7 9.0-12.2 fL Immature Granulocyte % (Auto) 0 % Neutrophils (%) (Auto) 81 H 42-75 % Lymphocytes (%) (Auto) 12 12-44 % Monocytes (%) (Auto) 7 0-12 % Eosinophils (%) (Auto) 0 0-10 % Basophils (%) (Auto) 0 0-10 % Neutrophils # (Auto) 14.7 H 1.8-7.8 10^3/uL Lymphocytes # (Auto) 2.1 1.0-4.0 10^3/uL Monocytes # (Auto) 1.3 H 0.0-1.0 10^3/uL Eosinophils # (Auto) 0.0 0.0-0.3 10^3/uL Basophils # (Auto) 0.0 0.0-0.1 10^3/uL Immature Granulocyte # (Auto) 0.1 0.0-0.1 10^3/uL Neutrophils % (Manual) 71 % Lymphocytes % (Manual) 17 % Monocytes % (Manual) 5 % Band Neutrophils 6 % Reactive Lymphocytes 1 % Toxic Granulation 3+ Platelet Estimate NORMAL Blood Morphology Comment NORMAL Sodium Level 132 L 135-145 MMOL/L Potassium Level 4.2 3.6-5.0 MMOL/L Chloride Level 96 L 98-107 MMOL/L Carbon Dioxide Level 23 21-32 MMOL/L Anion Gap 13 5-14 MMOL/L Blood Urea Nitrogen 15 7-18 MG/DL Creatinine 1.18 0.60-1.30 MG/DL Estimat Glomerular Filtration Rate 68 BUN/Creatinine Ratio 13 Glucose Level 119 H 70-105 MG/DL Calcium Level 9.2 8.5-10.1 MG/DL Corrected Calcium 9.3 8.5-10.1 MG/DL Total Bilirubin 1.4 H 0.1-1.0 MG/DL Aspartate Amino Transf (AST/SGOT) 43 H 5-34 U/L Alanine Aminotransferase (ALT/SGPT) 42 0-55 U/L Alkaline Phosphatase 67 40-136 U/L Troponin I < 0.30 <0.30 NG/ML Pro-B-Type Natriuretic Peptide < 36.0 <125.0 PG/ML Total Protein 7.6 6.4-8.2 GM/DL Albumin 3.9 3.2-4.5 GM/DL Lipase 30 8-78 U/L Influenza Type A (RT-PCR) Not Detected Not Detecte Influenza Type B (RT-PCR) Not Detected Not Detecte SARS-CoV-2 RNA (RT-PCR) Not Detected Not Detecte My Orders Orders - CHUCK WANG MD Cbc With Automated Diff (09/09/22 23:15) Comprehensive Metabolic Panel (09/09/22 23:15) Lipase (09/09/22 23:15) Influenza A And B By Pcr (09/09/22 23:15) Probnp Fs (09/09/22 23:15) Troponin I Fs (09/09/22 23:15) Chest 1 View Ap/Pa Only (09/09/22 23:15) Ekg Tracing (09/09/22 23:15) Covid 19 Inhouse Test (09/09/22 23:15) Ed Iv/Invasive Line Start (09/09/22 23:15) Ceftriaxone 1 Gm Pre-Mix (Rocephin 1 Gm (09/09/22 23:15) Hydrocodone/Apap 5/325 Tablet (Lortab 5 (09/09/22 23:15) Ns Iv 1000 Ml (Sodium Chloride 0.9%) (09/09/22 23:15) Manual Differential (09/09/22 23:16) Medications Given in ED Current Medications Medications Dose Ordered Sig/Ciro Route Start Time Stop Time Status Last Admin Dose Admin Acetaminophen/ Hydrocodone Bitart 1 ea ONCE ONCE PO 09/09/22 23:15 09/09/22 23:18 DC 09/09/22 23:24 1 EA Ceftriaxone Sodium/Dextrose 50 ml @ 100 mls/hr ONCE ONCE IV 09/09/22 23:15 09/09/22 23:44 DC 09/09/22 23:24 100 MLS/HR Vital Signs/I&O 09/09/22 23:08 Temp 37.0 Pulse 116 Resp 18 B/P (MAP) 186/97 (126) Pulse Ox 94 O2 Delivery Room Air Capillary Refill : Progress Note : Progress Note 66-year-old male with above history coming in due to cough and shortness of breath. ABCs were intact and vitals are stable on presentation although he is mildly tachycardic. Oxygen saturation ranged from 91 to 94% even with ambulation. Had some faint rhonchi in the left lower lung field. An IV was placed and he was given ceftriaxone. He is already been on azithromycin for atypical coverage. Afebrile here. Given a bolus of IV fluids as well. Chest x-ray my interpretation with no significant lobar infiltrate, no pneumotho rax, normal cardiac silhouette. Given the rhonchi on exam, productive cough, relative hypoxia, clinically he likely does have pneumonia. He does have a leukocytosis on his labs as well. Otherwise well-appearing and his oxygen improved to around 95%. I believe he stable for discharge with outpatient follow-up. He was sent home with strict return precautions. We will change up his antibiotic prescription. ECG Initial ECG Impression Date: Sep 09, 2022 Initial ECG Impression Time: 23:16 Initial ECG Rate: 100 Initial ECG Rhythm: S.Tach Comment Narrow QRS, normal axis, no significant ST changes or T wave abnormalities Diagnostic Imaging Diagonstic Imaging: Xray Comments X-ray ordered and interpreted by me of the chest showing no obvious lobar pneumonia Departure Impression Primary Impression: Pneumonia Qualified Codes: J18.9 - Pneumonia, unspecified organism Disposition: 01 HOME, SELF-CARE Condition: Stable Departure-Patient Inst. Decision time for Depature: 00:41 Referrals: MARY KAY ALONSO MD (PCP/Family) Primary Care Physician Patient Instructions: Pneumonia in Adults Add. Discharge Instructions: I do think you have a mild case of pneumonia. Your chest x-ray looks fairly clear, but your lung sounds were off which can be a sign of it. Especially given your elevated white blood cell count which is a sign of infection. Continue to take the azithromycin, stop the amoxicillin. You can take the hydrocodone as needed for cough, but try to use it sparingly and mostly at nighttime. If you are not improving a little bit within the next 3 days, then follow back up with your regular doctor Scripts Hydrocodone/Acetaminophen (Hydrocodone-Acetamin 5-325 mg) 5 Mg-325 Mg Tablet 1 TAB PO Q8H PRN for COUGH for 2 Days, #6 TAB Prov: CHUCK WANG MD 09/10/22 Cefdinir (Cefdinir) 300 Mg Capsule 300 MG PO BID for 7 Days, #14 CAP 0 Refills Prov: CHUCK WANG MD 09/10/22 Work/School Note: Work Release Form Date Seen in the Emergency Department: Sep 10, 2022 Return to Work: Sep 11, 2022 Restrictions: No Restrictions CHUCK WANG MD Sep 09, 2022 23:22
[2022-09-09 23:25] LABS: BASOPHILS % (AUTO) 0 % (0-10); EOSINOPHILS % (AUTO) 0 % (0-10); HEMATOCRIT 50 % (40-54); HEMOGLOBIN 17.2 g/dL (13.3-17.7); LYMPHOCYTES # (AUTO) 2.1 10^3/uL (1.0-4.0); LYMPHOCYTES % (AUTO) 12 % (12-44); MEAN CORPUSCULAR HEMOGLOBIN 31 pg (25-34); MEAN CORPUSCULAR HGB CONC 35 g/dL (32-36); MEAN CORPUSCULAR VOLUME 88 fL (80-99); MEAN PLATELET VOLUME 9.7 fL (9.0-12.2); MONOCYTES # (AUTO) 1.3 10^3/uL (0.0-1.0); MONOCYTES % (AUTO) 7 % (0-12); NEUTROPHILS # (AUTO) 14.7 10^3/uL (1.8-7.8); NEUTROPHILS % (AUTO) 81 % (42-75); PLATELET COUNT 213 10^3/uL (130-400); WHITE BLOOD COUNT 18.2 10^3/uL (4.3-11.0)
[2022-09-09 23:43] LABS: BAND NEUTROPHILS 6 %; LYMPHOCYTES % (MANUAL) 17 %; MONOCYTES % (MANUAL) 5 %; NEUTROPHILS % (MANUAL) 71 %; REACTIVE LYMPHOCYTES 1 %
[2022-09-09 23:44] LABS: PLATELET ESTIMATE NORMAL; RBC MORPH NORMAL; TOXIC GRANULATION/VACUOLAZATIO 3+
[2022-09-10 00:07] LABS: ALKALINE PHOSPHATASE 67 U/L (40-136); BILIRUBIN,TOTAL 1.4 MG/DL (0.1-1.0); BUN/CREATININE RATIO 13; CALCIUM 9.2 MG/DL (8.5-10.1); CARBON DIOXIDE 23 MMOL/L (21-32); CHLORIDE 96 MMOL/L (98-107); CREATININE SERUM 1.18 MG/DL (0.60-1.30); GFR ESTIMATED 68; GLUCOSE 119 MG/DL (70-105); POTASSIUM 4.2 MMOL/L (3.6-5.0); SODIUM 132 MMOL/L (135-145)
[2022-09-10 00:08] LABS: ALANINE AMINOTRANSFERASE 42 U/L (0-55); ALBUMIN 3.9 GM/DL (3.2-4.5); LIPASE 30 U/L (8-78); TOTAL PROTEIN 7.6 GM/DL (6.4-8.2)
[2022-09-10] MEDS ORDERED: CEFD300C3 PO (00:43)
[2022-09-10] MEDS ORDERED: ACHD5005 PO (00:43)
[2022-09-10 00:46] VITALS: BP 152/80
--- NOTE | 2022-09-10 07:58 | Diagnostic Imaging Report ---
HISTORY: Shortness of breath and cough COMPARISON: None TECHNIQUE: Frontal view of the chest. FINDINGS: There is mild elevation of the right hemidiaphragm. Left lung volume is large. No pleural effusion or pneumothorax is seen. The cardiac silhouette is normal in size. No consolidation is seen. IMPRESSION: 1. Chronic findings in the chest with no focal consolidation seen. Dictated by: Dictated on workstation # [id number]
== END 2022-09-10 00:47 | disposition home or self-care (01) ==
LOC: EDUNIT# 23:02 → ER FS 23:06
DX: J18.9 Pneumonia, unspecified organism (principal); R09.02 Hypoxemia; R00.0 Tachycardia, unspecified; Z20.822 Contact with and (suspected) exposure to COVID-19
CPT/HCPCS: 36415; 71045; 80053; 83690; 83880; 84484; 85007; 85027; 87636; 93005